=== PATIENT | male | born 1950 | race Caucasian/White ===

== ENCOUNTER 2019-09-03 15:11 | Inpatient (IN) ==
[2019-09-03 15:50] LABS: BASO# 0.03 X1000 (0.0-0.2); BASO% 0.2 % (0.0-0.8); EOS# 0.13 X1000 (0.0-0.7); HEMATOCRIT 51.8 % (42.0-52.0); HEMOGLOBIN 16.6 g/dL (14.0-18.0); IMM GRAN# 0.05 X1000 (0.0-0.04); IMM GRAN% 0.4 % (0.0-0.5); LYMPH# 1.22 X1000 (1.2-3.4); LYMPH% 9.5 % (20.5-51.1); MCH 28.1 PG (27-31); MCV 87.8 FL (81-99); MONO# 1.23 X1000 (0.11-0.59); MONO% 9.5 % (1.7-9.3); MPV 9.6 FL (7.4-10.4); NEUT# 10.23 X1000 (1.4-6.5); NEUT% 79.4 % (42.2-75.2); PLT 274 X1000 (130-400); RDW 16.4 % (11.5-14.5); WBC 12.89 X1000 (4.8-10.8)
[2019-09-03] MEDS ORDERED: PULMICORT INH ONE (15:50)
[2019-09-03] MEDS ORDERED: SOLU-MEDROL IV ONE (15:50)
[2019-09-03] MEDS ORDERED: ZOSYN 4.5 GM in NS 100 ML IV ONE (15:53)
[2019-09-03] MEDS ORDERED: VANCOMYCIN 1 GM/NS 1 GM/250 ML IVPB IV ONE (15:53)
--- NOTE | 2019-09-03 15:53 | PROVIDER DOCUMENTATION ---
This chart was entered by Yumiko Fernandez Scribe, acting as scribe for Malorie Chairez MD. HPI-General Adult - General Chief Complaint: Shortness of Breath Stated Complaint: difficulty breathing Time Seen by Provider: 09/03/19 15:32 Source: patient, family (Sister) Allergies/Adverse Reactions: Patient Allergies Allergy/AdvReac Type Severity Reaction Status Date / Time nitroglycerin Allergy Mild UNK Verified 09/03/19 16:15 - History of Present Illness -Gen Adult Nature of Presenting Problems: 69 y/o chronically ill male presents to the ED via EMS from [facility] with SOB. Sister states the patient has been complaining of left chest pain for two weeks and has recently complained of left abdominal pain. She stat es the patient is confused and unable to give a correct history. Sister states the patient has cancer which had "spread all over his body" by the time it was diagnosed. Location of Pain/Injury: reports: other (left chest and left abdomen) Onset/Duration: reports: gradual Timing: reports: still present Context/Activities at Onset: reports: light activity Associated Symptoms: reports: shortness of breath. denies: diarrhea, vomiting Review of Systems - Adult - REVIEW OF SYSTEMS - ADULT Constitutional: reports: fever. denies: weight gain, weight loss Eyes: reports: no symptoms reported Ears, Nose, Mouth & Throat: reports: no symptoms reported Cardiovascular: reports: chest pain. denies: irregular heart rate, syncope Respiratory: reports: shortness of breath. denies: cough, hemoptysis Gastrointestinal: reports: abdominal pain (left). denies: diarrhea, vomiting Genitourinary: reports: no symptoms reported Musculoskeletal: reports: no symptoms reported Integumentary: reports: no symptoms reported Neurological: reports: no symptoms reported Psychiatric: reports: no symptoms reported Endocrine: reports: no symptoms reported Hematologic/Lymphatic: reports: no symptoms reported Allergic/Immunologic: reports: no symptoms reported All Other Systems: Reviewed and Negative Past History - Adult - PAST MEDICAL HISTORY-ADULT Review of Records: reports: Old Records Reviewed, Nursing Assessment Review, Medications Reviewed - IMMUNIZATION STATUS Childhood Immunizations: See Nurse Assessment Flu Vaccine: See Nurse Assessment - SOCIAL HISTORY Smoking: non-smoker Substance Use: none/never Living Situation: care facility ([facility]) Physical Exam-General - PHYSICAL EXAM-ADULT Initial Vital Signs Reviewed: Yes - CONSTITUTIONAL General Appearance: moderate distress, other (chronically ill appearing) - HEAD, EARS, NOSE, MOUTH & THROAT HENMT: normocephalic/atraumatic - NECK Neck: full range of motion, supple - RESPIRATORY Respiratory: decreased breath sounds (mild on the right with little to no air movement on the left), other (mildly tachypneic, on non-rebreather) - CARDIOVASCULAR Cardiovascular: tachycardia - GASTROINTESTINAL (ABDOMEN) Abdominal Exam: negative: distended, guarding, rebound - SKIN Integumentary: negative: diaphoresis, pallor - NEUROLOGIC Neurologic: grossly normal Progress - PLAN OF CARE/RESULTS Progress/Plan/Lab Results: Vital Signs - 8 hr 09/03/19 15:13 Temperature 98.8 F Pulse Rate 105 H Respiratory Rate 30 H Blood Pressure 122/82 O2 Sat by Pulse Oximetry 90 L Patient with CXR shwoing large left pleural effusion. No PNA but unknown if there is underlying PNA underneath effusion. Will cover for sepsis. Patient is DNR and was transitioned to venti mask. Given brathing treatments and lasix. Cr 2.7, unknown baseline. Will need admission. Spoke to Dr Benjamin, rotational moulding operator for hospitalist who accepted patient for admission. Result Diagrams: 09/03/19 15:33 09/03/19 15:33 - XRAY 1 XRAY Study: Chest (CHEST-1 VIEW - 09/03/2019 INDICATION: SOB COMPARISON: None FINDINGS: There is cardiomegaly and significant pulmonary vascular congestion. There is a moderate to large left pleural effusion. There is hazy pulmonary edema in the lung bases. There is probably COPD. IMPRESSION: Congestive heart failure. Moderate to large left pleural effusion. COPD. Elec tronically signed by Alexander Hunter 09/03/2019 4:16 PM) Departure - Departure Date of Disposition Decision: 09/03/19 Time of Disposition Decision: 19:03 DIAGNOSIS: Congestive heart failure, Chronic kidney disease, Hyperkalemia, Elevated troponin Disposition: ADMITTED INPATIENT 09 Certified Medical Emergency: Emergent Condition: Critical - Critical Care Note This patient required my direct & personal management of CC.: Yes Total Time (mins): 35 Critical Care Statement: This patient required my direct personal management to treat or rule out processes, the absence of which, could potentiallly result in sudden, clinically significant life or limb threatening deterioration. Attestation - Physician/ STACY Attestation Patient care was provided by Advanced Practice Provider:: No The physician spent face to face time with patient:: Yes Advanced Practice Provider documentation review:: Supervising physician onsite and consulted in the evaluation and care of this patient. The physician did have a face to face encounter with the patient. This chart was documented by the indicated scribe, (Yumiko Fernandez, Scribe) and accurately reflects the services I performed and decisions made by me, Malorie Chairez MD, as attested by the provider's signature.
[2019-09-03 16:10] LABS: INR 1.66; PROTIME 19.9 Seconds (11.0-16.0)
[2019-09-03 16:12] LABS: PTT 45.2 Seconds (22.3-41.8)
[2019-09-03] MEDS: DUONEB (A & A) INH ONE ×2 (16:12→16:13)
--- NOTE | 2019-09-03 16:18 | Diag Imaging Result Doc PS360 ---
CHEST-1 VIEW - 09/03/2019 INDICATION: SOB COMPARISON: None FINDINGS: There is cardiomegaly and significant pulmonary vascular congestion. There is a moderate to large left pleural effusion. There is hazy pulmonary edema in the lung bases. There is probably COPD. IMPRESSION: Congestive heart failure. Moderate to large left pleural effusion. COPD. Electronically signed by Alexander Hunter 09/03/2019 4:16 PM
[2019-09-03 16:26] LABS: ALB/GLOB RATIO 1.1; ALBUMIN 3.5 g/dL (3.5-5.0); CALCIUM 9.8 mg/dL (8.8-10.2); CREATININE 2.7 mg/dL (0.7-1.2); MAGNESIUM 2.4 mg/dL (1.5-2.7); POTASSIUM 5.6 mmol/L (3.5-5.1); TOTAL BILIRUBIN 0.27 mg/dL (0.20-1.00); TOTAL PROTEIN 6.8 g/dL (6.3-8.3)
[2019-09-03] MEDS ORDERED: LASIX IV ONE (16:34)
[2019-09-03 18:55] LABS: URINE SOURCE CATH
[2019-09-03 18:59] LABS: BILIRUBIN URINE NEGATIVE (NEGATIVE); BLOOD URINE LARGE (NEGATIVE); COLOR YELLOW; GLUCOSE URINE NEGATIVE (NEGATIVE); KETONE URINE NEGATIVE (NEGATIVE); LEUKOCYTES URINE NEGATIVE (NEGATIVE); NITRITE URINE NEGATIVE (NEGATIVE); PH URINE 5.5; PROTEIN URINE TRACE mg/dL (NEGATIVE); SP GRAVITY URINE 1.013; TURBIDITY URINE CLEAR (CLEAR); UROBILINOGEN URINE NORMAL (NORMAL)
[2019-09-03 19:01] LABS: UR EPITHELIAL CELLS <10 /HPF (<10); URINE BACTERIA NEGATIVE /HPF; URINE RBC TNTC /HPF (<10); URINE WBC <10 /HPF (<10)
[2019-09-03 21:49] LABS: ALLEN TEST YES; BE -5.4 mmoll (-3.0-3.0); BLOOD TYPE ARTERIAL; HCO3-(ACT) 20.5 mmoll (20.0-26.0); METHB 0.8 % (0.0-1.5); MODALITY VENTIMASK; O2(CT) 20.5 mL/dL (15.0-23.0); O2HB 91.8 % (95.0-99.0); PCO2(98.6) 30 mmHg (35-45); PO2(98.6) 63 mmHg (60-100); SAMPLE BLOOD; SAO2 94.6 % (95.0-100.0); THB 15.9 g/dL (11.5-17.4); pH(98.6) 7.39 (7.35-7.45)
[2019-09-03] MEDS ORDERED: NORCO-7.5 PO ONE (21:52)
--- NOTE | 2019-09-03 22:25 | Diag Imaging Result Doc PS360 ---
CT THORAX W/O CONTRAST - 09/03/2019 INDICATION: Dyspnea,Hypoxia,Fever,cough COMPARISON: Chest radiograph from earlier FINDINGS: There is significant patient motion artifact. There is a left hilar mass measuring 4.8 cm. There is a large left pleural effusion. There is significant collapse of the left lung. There is severe COPD. There are some hazy interstitial infiltrates in the right lung base. No pleural effusion on the right. There are cholecystectomy clips. There are moderate degenerative changes of the spine. No acute or suspicious bony lesion. IMPRESSION: Left hilar mass. Rather large left pleural effusion. Severe COPD. Minimal interstitial infiltrates in the right lung base, nonspecific. This exam was performed using automated exposure control, adjustment of mA or kV according to patient size, and/or use of iterative reconstruction technique Electronically signed by Alexander Hunter 09/03/2019 10:22 PM
--- NOTE | 2019-09-03 23:21 | HISTORY AND PHYSICAL ---
ADDENDUM: Patient of Jenni Cuenca. The patient resides at [facility]. Has a history of left-sided lung cancer and elected to not proceed any further treatment. He has a DNR order in place. Came in because of shortness of breath and because of hypoxia over the last 2 to 3 days. His O2 saturation on 50% is 87%. Heart rate is 96, respiratory rate is 21, temperature is 98.8 degrees. He also complains of cough and left-sided chest pain. His lab work is notable for a creatinine of 2.7, potassium of 5.6, BUN of 59. His white count is 13,000, hemoglobin and hematocrit 16 and 51, platelets 274,000 with 79% neutrophils. Urinalysis shows no evidence of infection, but a lot of blood. His blood gas, 7.39, pCO2 of 30, PO2 of 63 and this is on 50% Venti mask. Chest film also shows congestive heart failure with moderate left pleural effusion. A CT thorax has been ordered to get a very clear picture of the true nature of the patient's dyspnea. I do suspect the primary driving force here since that he has a large left pleural effusion is likely the underlying malignancy in the left lung. However, it does not preclude the patient from having coexistent CHF although clinically when I examined him I did not find anything in his exam to suggest he has CHF. We will recommend ordering also an echo to assess his LV function. It is possible patient may have such a huge mass that it could be causing some compression on the heart to produce pulmonary edema noted on chest film. We will recommend also continuing Lasix at least to achieve some degree of comfort and DuoNebs scheduled. Also recommend starting the patient on Zosyn for now. Would also recommend a diagnostic/therapeutic thoracentesis in the morning. cc: Vivian Valles MD
[2019-09-03] MEDS: DUONEB (A & A) INH SCH (23:48)
[2019-09-04] MEDS: MAXIPIME 1 GM in NS 50 ML IV SCH ×3 (00:01→23:28)
[2019-09-04] MEDS: ZYVOX 600 MG/D5W 600 MG/300 ML IVPB IV SCH ×3 (01:01→23:28)
[2019-09-04] MEDS: DUONEB (A & A) INH SCH ×4 (03:25→21:09)
[2019-09-04 04:22] LABS: HEMATOCRIT 47.6 % (42.0-52.0); HEMOGLOBIN 15.2 g/dL (14.0-18.0); IMM GRAN# 0.03 X1000 (0.0-0.04); IMM GRAN% 0.4 % (0.0-0.5); LYMPH# 0.71 X1000 (1.2-3.4); LYMPH% 8.3 % (20.5-51.1); MCH 28.3 PG (27-31); MCHC 31.9 g/dL (33-37); MCV 88.6 FL (81-99); MONO# 0.28 X1000 (0.11-0.59); MONO% 3.3 % (1.7-9.3); MPV 9.5 FL (7.4-10.4); PLT 229 X1000 (130-400); RBC 5.37 XMIL (4.7-6.1); RDW 16.1 % (11.5-14.5); WBC 8.52 X1000 (4.8-10.8)
[2019-09-04] MEDS ORDERED: TYLENOL PO PRN (04:28)
[2019-09-04] MEDS ORDERED: TESSALON PO PRN (04:28)
[2019-09-04] MEDS ORDERED: ZOFRAN IV PRN (04:28)
[2019-09-04 04:53] LABS: ALB/GLOB RATIO 0.7; ALBUMIN 2.8 g/dL (3.5-5.0); CALCIUM 9.4 mg/dL (8.8-10.2); CREATININE 2.5 mg/dL (0.7-1.2); MAGNESIUM 2.4 mg/dL (1.5-2.7); POTASSIUM 4.9 mmol/L (3.5-5.1); TOTAL BILIRUBIN 0.24 mg/dL (0.20-1.00); TOTAL PROTEIN 6.9 g/dL (6.3-8.3)
[2019-09-04] MEDS: LASIX IV SCH ×2 (05:11→16:23)
[2019-09-04 05:25] LABS: ALLEN TEST YES; BE -4.1 mmoll (-3.0-3.0); BLOOD TYPE ARTERIAL; HCO3-(ACT) 21.6 mmoll (20.0-26.0); METHB 1.1 % (0.0-1.5); MODALITY NRB; O2HB 94.1 % (95.0-99.0); PCO2(98.6) 38 mmHg (35-45); PO2(98.6) 78 mmHg (60-100); SAMPLE BLOOD; SAO2 97.2 % (95.0-100.0); THB 15.9 g/dL (11.5-17.4); pH(98.6) 7.35 (7.35-7.45)
--- NOTE | 2019-09-04 05:28 | EKG Report ---
Test Performed on : 09/04/2019 04:11:43 AM Test Reason : Elevated Troponin Blood Pressure : / mmHG Vent. Rate : 083 BPM Atrial Rate : 083 BPM P-R Int : 142 ms QRS Dur : 088 ms QT Int : 404 ms P-R-T Axes : 048 033 018 degrees QTc Int : 474 ms Normal sinus rhythm. Normal ECG No previous ECGs available Unconfirmed Result
[2019-09-04] MEDS ORDERED: NS 500 ML IV ONE (08:32)
[2019-09-04] MEDS: SYSTANE EYE DROPS OPH SCH ×4 (09:29→20:43)
[2019-09-04] MEDS: PROSCAR PO SCH (09:29)
[2019-09-04] MEDS: THERA M PLUS PO SCH (09:29)
[2019-09-04] MEDS: FERROUS SULFATE PO SCH (09:29)
[2019-09-04] MEDS: NORCO-7.5 PO PRN ×2 (10:28→16:23)
--- NOTE | 2019-09-04 10:50 | HISTORY AND PHYSICAL ---
PRIMARY CARE PROVIDER: Dr. Jenni Cuenca at [facility] in [place]. DATE AND TIME: 09/03/2019 at 2145. CHIEF COMPLAINT: Shortness of breath. HISTORY OF PRESENT ILLNESS: Mr. Corrigan is a 69-year-old male who does have a pertinent past medical history of COPD, chronic hypoxic respiratory failure, congestive heart failure, atrial fibrillation, recurrent pneumonia, and a diagnosis of lung cancer approximately 1 year ago, for which the patient chose not to pursue treatment. The patient as well as his sister, Karley, who is at the bedside, report to me that for approximately a week now, he has had worsening shortness of breath. He has also had a wet, nonproductive cough. The patient states that he coughs, but it is like he cannot get his secretions up. He also reports that he has had fever, body aches, and chills. He has been reporting a left-sided chest pain as well, and he states this is worse with cough and deep breathing. His sister did state that they did do a chest x-ray yesterday and diagnosed him with pneumonia. She states since yesterday, his oxygen saturations have been low, in the 80s range, though at times had gotten down to as low as high 40s and 60s at times. According to the ER nurses note, it was documented that the patient did have a low oxygen saturation in the 60s at [facility]. They did call EMS. They gave DuoNeb treatment, and placed the patient on nonrebreather. His oxygen saturation did improve to 93%. They did report that the patient was awake and alert. Attempted to talk and did have garbled, hoarse speech. Upon my assessment, the patient was confused. He knew his name and his sister at bedside, though did not know where he was, but he could tell me the month was August. He was able to answer simple questions and follow commands. At the time I spoke with him, though he was hoarse, his speech was understandable. The patient does have difficulty hearing as well. The sister or the patient did not state that they had any previous knowledge of him having any type of left pleural effusion previously. The patient denies any headache or dizziness. He denies any abdominal pain, nausea, vomiting, or diarrhea. Though he did not report any painful urination, the patient as well as his sister both report that he has been complaining for quite some time that he feels like "things are closing up down there." When I questioned the patient about this further, it sounds to me that the patient has been having difficulty urinating. He does have a history of BPH. He does have a condom catheter on at this time and is having urine output. We did do a bladder scan. He is only holding 200 mL of urine in his bladder, but we are going to recheck this at scheduled intervals just to monitor him for possible high residuals. He denies any pain, numbness, tingling, or swelling in the extremities. His sister at bedside did not state that the nurses at the prison had informed her that he had been having bloody or black stool. Upon evaluation in the ER, it looks like they were planning to place the patient on BiPAP, though his oxygen saturation had improved with nonrebreather. They did place him ultimately on a Ventimask at 50%. With that, he is maintaining oxygen saturation in the low 90s. Arterial blood gases did show that he had a PO2 of 63, O2 saturation is 94, with a pH of 7.39, pCO2 of 30. He did have some mild leukocytosis noted with a white blood cell count of 12,890. Though his PT and INR, as well as PTT are all elevated, his INR is 1.6. The patient does take Xarelto for a history of atrial fibrillation. He also does have chronic kidney disease, though I am not sure what his baseline renal function is. At this time, his creatinine is 2.7. GFR is 24. He did have a slightly elevated potassium of 5.6. CK was 106, troponin was 0.158, and his proBNP was 26,735. EKG performed did show normal sinus rhythm at a rate of 83, with a QTc of 474. His chest x-ray did show congestive heart failure with a [id number] left pleural effusion. Given the patient's history, for further evaluation of this, we did perform a CT thorax, noncontrast, which did show a left hilar mass. He also had a rather large left pleural effusion, severe COPD, and infiltrates in the right lung base. On the overnight radiology report, they did note that there was some rightward shift of the mediastinum as well. This could be secondary to his pleural effusion, which could be contributing to his pulmonary edema and possible coexisting heart failure. He did receive Lasix 40 mg in the ER, as well as DuoNeb treatment, and blood cultures were obtained. We did also perform a flu, which was negative. He has been started on antibiotics of cefepime and Zyvox. He will be placed on PVC unit for close monitoring. REVIEW OF SYSTEMS: A 14-point review of systems was conducted with the patient, and all were negative, except the pertinent positives mentioned in the above HPI. PAST MEDICAL HISTORY: 1. COPD, on continuous oxygen of nasal cannula at 5 L. 2. Chronic hypoxic respiratory failure. 3. Pulmonary fibrosis. 4. History of lung cancer that was diagnosed 1 year ago. The patient has chosen not to pursue treatment for this. 5. History of atrial fibrillation, on chronic anticoagulation with Xarelto. 6. Hyperlipidemia. 7. History of peptic ulcer disease. 8. Chronic kidney disease. 9. Gastroesophageal reflux disease. 10. BPH. 11. Migraines. 12. Insomnia. 13. Obstructive sleep apnea. 14. Spondylosis. 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 16. Major depressive disorder. 17. Restless legs syndrome. 18. History of alcohol dependence in the past. PAST SURGICAL HISTORY: 1. Surgical repair of gastric ulcers. 2. Bilateral knee replacements. 3. Cataract surgery. SOCIAL HISTORY: The patient is a former smoker. He did smoke since he was a teenager, though quit smoking 2 years ago. He did have a history of daily alcohol abuse for a period of 5 years, and has not recently had any alcohol use. There is no known history of illicit drug use. According to the patient's record, he is . He does have 3 daughters, though his sister at bedside tells me unfortunately, they are not involved in his care and they have chosen this to be this way. She states that when they decided this, she did move him from a prison close to where they live, to [facility] in [place], and she has been overseeing his care there, though is not his Power of Distribution Operation Supervisor. According to her, his daughters, I guess specifically the oldest daughter, Maylin, is the next of kin. Though the patient was alert and oriented at the prison, did make himself a DO NOT RESUSCITATE, though at this time, he is slightly confused. We did call and speak with his daughter, Maylin, and did obtain his resuscitation status, which is still going to remain a DO NOT RESUSCITATE 1. His sister, Karley, reports that he is pretty much bedbound at this time at the prison. FAMILY HISTORY: Positive for his father having a history of colon cancer and a history of alcoholism. His mother had a history of pancreatic cancer and COPD. In siblings, there is a history of diabetes mellitus, kidney disease, heart disease, and lung disease. ALLERGIES: The patient has allergies to nitroglycerin. HOME MEDICATIONS: I would like to add that unfortunately, the patient's home medication list that was sent with him to the ER was not copied correctly. Half of it was cut off. We did call multiple times, trying to obtain a list for this. According to the prison, they were unable to get the fax to go through, and the nurse was uncooperative with confirming this list verbally over the phone. There is a list in the computer at this time, though this does need to be verified, though I will run through the medication and dosages, though we are awaiting confirmation of the dosage strength that is administered, and how many times a day. 1. DuoNeb treatments daily p.r.n. 2. Ceftriaxone 1 gram IM daily. 3. Ferrous sulfate 325 mg p.o. daily. 4. Proscar 5 mg p.o. daily. 5. Lasix 40 mg p.o. daily. 6. [place] 7.5 mg p.o. as directed p.r.n. 7. Levaquin 500 mg p.o. daily. 8. Lorazepam 1 mg p.o. daily p.r.n. 9. Methylprednisolone 40 mg IM every 12 hours. 10. Morphine liquid. The concentration is 20 mg/mL, though we do not know at this time how many mL he receives at a time. 11. Thera multivitamin 1 tablet p.o. daily. 12. Protonix 40 mg p.o. at bedtime. 13. Refresh ophthalmic eyedrops 1 drop in bilateral eyes 4 times a day as needed. 14. Potassium chloride, though I am unsure at this time what mEq dose he receives. 15. Pravastatin 20 mg p.o. at bedtime. 16. Xarelto 20 mg p.o. daily with supper. 17. Spiriva 1 puff inhaled daily. DIAGNOSTIC DATA/LABORATORY RESULTS: White blood cell count 12,890, hemoglobin 16.6, hematocrit 51.8, platelet count is 274,000. PT 19.9, INR 1.66, PTT is 45.2. Sodium 136, potassium 5.6, chloride 98, serum bicarb is 18, BUN 59, creatinine 2.7, GFR 24, glucose 104, calcium 9.8. Magnesium 2.4. Total bilirubin is 0.27, AST is 25, ALT 65, alkaline phosphatase is 184. CK 106, troponin 0.158. ProBNP is 26,735. Initial lactate was 1.3, with a repeat of 1. Urinalysis obtained via catheter showed trace protein, large blood. The nurses did report that they did try to place a Valencia catheter, though had difficulty with this. They even tried a [place] and were not able to obtain placement. This is likely where the large blood in the urine is coming from, though it was negative for nitrites, leukocytes, and bacteria. Arterial blood gases were obtained on FiO2 at 50% Ventimask, with pH of 7.39, pCO2 of 30, PO2 of 63, HC03 of 28.5, with an oxygen saturation of 94.6. EKG showed normal sinus rhythm at a rate of 83, QTc of 474. This is the patient's first visit at this facility. We do not have any other EKGs for comparison. Chest x-ray did show congestive heart failure with [id number] left pleural effusion. CT thorax without contrast did show a left hilar mass, a rather large left pleural effusion, which on the overnight Radiology report did note that he had rightward shift of the mediastinum. There were also interstitial infiltrates in the right lung base, and severe COPD. PHYSICAL EXAMINATION: VITAL SIGNS: Temperature 98.8 degrees, heart rate 94, respirations 26, blood pressure is 111/82, with a MAP of 95, oxygen saturations are anywhere from 89% to 92% on the bedside monitor, though it is not the most uniform pleth on the pulse oximeter. ABGs did note an oxygen saturation of 94%. GENERAL: The patient was resting in the ER stretcher. He was still tachypneic. He was reporting that he did feel a little short of breath, though he did state he felt better since he arrived, though he was in no acute distress. HEENT: Head is atraumatic, normocephalic. Pupils are equal, round, reactive to light, and were 3 mm bilaterally and brisk. Oral mucosa was slightly dry. Oropharynx was clear. NECK: Supple. Trachea midline. CARDIOVASCULAR: The patient has S1, S2 present. No murmurs, gallops, or rubs appreciated, with a regular rate and rhythm. PULMONARY: The patient has symmetrical chest expansion bilaterally. Lung sounds did note that he has wheezing and rhonchi throughout. He does have diminished lung sounds on the left. This is worse in the left lung base. He did have some crackles noted in the left lung base as well. He also had some crackles noted in the right lung base. ABDOMEN: Soft. It does not appear to be distended, though the patient has a slightly protuberant abdomen noted. He was complaining of also some left upper abdominal pain, though upon palpation, he was nontender. Bowel sounds are present in all 4 quadrants. GENITOURINARY: The patient does have a condom catheter in place at this time, though given his reports that he has been having some difficulty urinating maybe and stated that he felt like things were "closing up down there," we did remove the condom catheter. I did examine his urethral meatus. There do not appear to be any abnormalities that I could note. Delaney, the patient's nurse, was present at bedside with me during this portion of the patient's exam. After examination, the patient's foreskin was pulled back into place, and Delaney is going to place his condom catheter back on. He is having urine output into the condom catheter drainage bag. This is light diana color urine. He has approximately 900 mL of urine in the bag at this time. EXTREMITIES: No cyanosis. I noted that there may be some very slight trace edema present, though there is no pitting edema. Pulse, motor, and sensory were intact in all extremities. Radial and pedal pulses were 2+ bilaterally. INTEGUMENTARY: The patient's skin is pink, warm, and dry. NEUROLOGICAL: The patient is alert and oriented to person, time, and for the most part, situation. He was not oriented to place. His sister did have to help with some information related to history of present illness and past medical history, though for the most part, the patient was able to answer these questions. He did answer questions related to his symptoms and review of systems. He is able to move all extremities. There are no other focal neurological deficits noted. ASSESSMENT AND PLAN: 1. Acute on chronic hypoxic respiratory failure. This is likely secondary to the patient's underlying lung cancer, the large left pleural effusion, his pneumonia, as well as chronic obstructive pulmonary disease and a possible coexisting congestive heart failure. We have placed orders for the patient to undergo a diagnostic and therapeutic thoracentesis in the morning. We have placed him with supplemental oxygen as previously mentioned with the Ventimask. The patient's oxygen saturations have improved. His arterial blood gases did not show any overt acute abnormalities. We will continue with aggressive pulmonary toilet with incentive spirometry, scheduled DuoNeb treatments, and frequent encouragement of cough, turn, and deep breathing. We have obtained blood cultures as well as sputum culture. We did perform an influenza screen, which was negative. He has been placed with antibiotics of Zyvox and cefepime. We have also added on medication of Tessalon Perles for cough. We will repeat an ABG in the morning. We have placed a consult with Dr. Cooper with Pulmonology as well, and will await his evaluation and further recommendations for management. Will continue to monitor his respiratory status closely. 2. Large left pleural effusion. Will continue treatment as mentioned above in #1, with hopes that he may be able to undergo a thoracentesis in the morning for therapeutic and diagnostic evaluation. 3. Healthcare-associated pneumonia. Will continue with treatment as mentioned above for #1. 4. History of lung cancer diagnosed reportedly a year ago, for which the patient chose not to pursue treatment. 5. Chronic obstructive pulmonary disease. Will continue with treatment as mentioned above for #1. 6. Possible coexisting congestive heart failure. For this, we have placed the patient with Lasix 40 mg intravenously every 12 hours. We will obtain an echocardiogram, as well as a series of cardiac enzymes. We will do strict intake and output and daily weights. We will await the results of these diagnostic studies, and will continue to follow closely. This could be secondary to his worse pleural effusion. There was mention of some right mediastinal shift on the CT from the overnight radiologist. 7. History of atrial fibrillation, on chronic anticoagulation with Xarelto. The patient is in sinus rhythm at this time. He is in a controlled rate in the 80s. Given his renal function at this time, as well as he is going to undergo thoracentesis in the morning, we will place sequential compression devices at this time. We will start him with heparin 5000 units subcutaneously every 12 hours at this time given his renal function, though once this has improved, the patient could possibly be placed back on Xarelto if his renal function improves, though if his GFR is greater than 30, Eliquis is a possible option as well. We will await further evaluation of this through his hospital course, though we will not start on his heparin until tomorrow. He is hopefully going to undergo a thoracentesis today. Will hold this given his possible procedure. 8. Deep vein thrombosis prophylaxis will be provided with sequential compression devices at this time, though we will start him on heparin 5000 units subcutaneously every 12 hours tomorrow. The patient has been placed on PVC unit for close monitoring with continuous cardiac telemetry and pulse oximetry. Will do frequent vital sign. We will repeat a CBC, CMP, and magnesium in the morning. Will also perform a series of cardiac enzymes. We are going to get repeat ABGs, and we are awaiting possible thoracentesis and have ordered pleural fluid studies as well. Further orders and recommendations pending hospital course, diagnostic studies, and physician evaluation. Dictated by RUPESH Fournier for Vivian Valles MD cc: Vivian Valles MD MTDD
[2019-09-04] MEDS ORDERED: ANESTHESIA PB SET 88 IN 5742 ONE (11:11)
[2019-09-04 12:54] LABS: INR 1.17
--- NOTE | 2019-09-04 14:02 | CONSULTATION ---
DATE OF CONSULTATION: 09/04/2019 REQUESTING PROVIDER: RUPESH Fournier REASON FOR CONSULTATION: Acute respiratory failure, large left pleural effusion, lung cancer. HISTORY OF PRESENT ILLNESS: This is a 69-year-old male with a medical history of COPD with chronic hypoxic respiratory failure, pulmonary fibrosis, lung cancer, atrial fibrillation, hyperlipidemia, chronic kidney disease, gastroesophageal reflux disease, insomnia, obstructive sleep apnea, restless legs syndrome, and major depression disorder. He presented to the ER via EMS from [facility] yesterday afternoon with worsening shortness of breath, nonproductive cough, fever, body aches, and chills. He apparently has been diagnosed with and treated for pneumonia in the senior care day before hospital visit. CT thorax without contrast in the ER revealed left hilar mass measuring 4.8 cm, large left pleural effusion, significant collapse of the left lung, severe COPD, and some hazy interstitial infiltrates in the right lung base, nonspecific. Initial lab work showed mild leukocytosis, hypokalemia, elevated BUN, creatinine, troponin T, and proBNP at 26,745. The patient has been admitted to [facility] for further evaluation and management. The patient currently is still in the ER. He is lying in bed with no acute distress noted. He appears drowsy, but he will open his eyes when I talk to him. He does have difficulty hearing. Patient's sister at the bedside reported that the patient has lung cancer diagnosed 1 year ago with no treatment. The patient did complain of some left-sided chest pain which is worse with cough or deep breathing. He has loose stool recently, but no diarrhea noted. He also has been complaining of generalized abdominal pain recently, but no nausea or vomiting. PAST MEDICAL HISTORY: 1. Chronic obstructive pulmonary disease, chronic hypoxic respiratory failure on continuous oxygen, on continuous nasal cannula at 5 liters for over 2 years since the patient moved to [facility]. 2. Pulmonary fibrosis. 3. Lung cancer diagnosed 1 year ago in the [facility]. The patient has chosen not to pursuit treatment. 4. Atrial fibrillation on chronic and recurring coagulant with Xarelto. 5. Hyperlipidemia. 6. History of peptic ulcer disease. 7. Chronic kidney disease. 8. Gastroesophageal reflux disease. 9. Benign prostatic hyperplasia. 10. Migraines. 11. Insomnia. 12. Obstructive sleep apnea, not on any CPAP in the senior care. 13. Spondylosis. 14. Intervertebral degeneration in the thoracic region. 15. Major depressive disorder. 16. Restless legs syndrome. 17. History of heavy use, quit 2 years ago after the patient moved to the [facility]. 18. History of alcohol dependence. PAST SURGICAL HISTORY: 1. Gastric ulcer repair. 2. Bilateral knee replacements. 3. Cataract surgery. SOCIAL HISTORY: The patient has been living in the [facility] for 2 years. He started smoking at age of 15, smoked up to 3 packs per day and quit and 2 years ago after he moved to the [facility]. He used to drink alcohol daily for a period of 5 years. He has no history of illicit drug use. FAMILY HISTORY: Positive for lung cancer, colon cancer, alcoholism, pancreatic cancer, COPD, diabetes, kidney disease, heart disease. ALLERGIES: Nitroglycerin. REVIEW OF SYSTEMS: Difficult to be obtained. PHYSICAL EXAMINATION: Vital Signs: Temperature 97.8 degrees, blood pressure 118/79, pulse 79, respiratory rate 16, oxygen saturation 94% on nonrebreather with FiO2 of 100%. General: Chronically ill-appearing, lying in the stretcher with no acute distress noted. HEENT: Atraumatic, normocephalic. Trachea midline. Mucosa pink and slightly dry. Respiratory: Even and unlabored. Symmetrical excursion. Auscultation revealed significantly diminished breathing sounds on the left side of the lung and some mild early inspiratory crackles on the right lower lung zones. Cardiovascular: Regular rate and rhythm. Gastrointestinal: Soft, generalized tenderness, distended. Normoactive bowel sounds in all 4 quadrants. Extremities: No pedal edema. No cyanosis. No clubbing. Dorsalis pedis 2+ bilaterally. Neurologic: Alert and oriented x2 to person and time. Speech fluent. Able to follow commands. Difficulty hearing. LABORATORY DATA: White blood cell 8.52, hemoglobin 15.2, hematocrit 47.6, platelet 229,000. Sodium 139, potassium 4.9, chloride 103, carbon dioxide 18, BUN 59, creatinine 2.5, glucose 150. Troponin T of 0.091. ABG, pH 7.35, pCO2 of 48, PO2 of 78, HCO3 of 21.6, base excess -4.1, and oxyhemoglobin 94.1. IMAGING DATA: See [facility] for CT thorax without contrast on 09/03/2019. ASSESSMENT: This is a 69-year-old male with a medical history of chronic obstructive pulmonary disease with chronic hypoxic respiratory failure, pulmonary fibrosis, lung cancer without treatment, atrial fibrillation, hyperlipidemia, chronic kidney disease, gastroesophageal reflux disease, benign prostatic hyperplasia, insomnia, obstructive sleep apnea, restless legs syndrome, and major depressive disorder and a history of heavy tobacco use. He has been admitted to the [facility] since yesterday with acute on chronic hypoxic respiratory failure, large left pleural effusion, healthcare-associated pneumonia, and congestive heart failure. 1. Acute on chronic hypoxic respiratory failure, likely secondary to underlying lung cancer, large left pleural effusion, pneumonia, chronic obstructive pulmonary disease, and congestive heart failure. 2. Large left pleural effusion. 3. Healthcare-associated pneumonia. 4. Lung cancer diagnosed 1 year ago in the [facility] with no treatment. 5. Chronic obstructive pulmonary disease. 6. Congestive heart failure exacerbation. 7. Possible acute on chronic kidney disease. 8. DNR1. PLAN: 1. Continue supplemental oxygen. 2. Continue antibiotic including cefepime and linezolid. Continue breathing treatment every 6 hours. 3. Continue diuretics as indicated. 4. Follow up with ABG, CBC, BMP, sputum culture, blood culture, and chest x-ray. 5. Pending ultrasound-guided thoracentesis. 6. Further recommendations pending hospital course. Thank you for the courtesy of this consult. Dictated by RUPESH Mtz for Otto Russo MD cc: RUPESH Mtz MD [facility]
--- NOTE | 2019-09-04 14:51 | Diag Imaging Result Doc PS360 ---
EXAM: CHEST-2 VIEWS INDICATION: S/P LEFT U/S THORACENTESIS TECHNIQUE: 2 views COMPARISON: 09/03/2019 FINDINGS: There has been a significant decrease in size of the left pleural effusion status post left thoracentesis. At least a small amount of pleural fluid remains on the left. There is no evidence of pneumothorax status post thoracentesis. Pulmonary venous congestion and interstitial edema appears to have marginally improved. No new consolidation is identified. Cardiac silhouette is stable. IMPRESSION: 1.No evidence of pneumothorax status post left thoracentesis. 2.Marginal improvement of interstitial edema. Electronically signed by Kimo Mcnally 09/04/2019 2:49 PM
--- NOTE | 2019-09-04 14:55 | Diag Imaging Result Doc PS360 ---
EXAM: US THORACENTESIS W/IMAGE GUIDE INDICATION: Therapeutic/Diagnostic L Pleural Effusion TECHNIQUE: COMPARISON: None. FINDINGS: Risks, benefits, and alternatives were discussed with the patient and informed consent was obtained. Patient was prepped and draped in sterile fashion and local anesthesia was achieved with 1% lidocaine solution. Using ultrasound guidance, a large bore catheter was inserted into the left pleural space and 1500 mL of serosanguineous fluid was aspirated. There were no known complications. A postprocedural radiograph showed no pneumothorax. IMPRESSION: Technically successful ultrasound-guided left thoracentesis. Electronically signed by Kimo Mcnally 09/04/2019 2:53 PM
[2019-09-04] MEDS: PROTONIX PO SCH (20:43)
[2019-09-04] MEDS: PRAVACHOL PO SCH (20:43)
--- NOTE | 2019-09-04 21:53 | ECHO REPORT ---
ORDER DATE: 09/04/2019 INTERPRETING PHYSICIAN: Dr. Riggs CLINICAL INDICATIONS: CHF, pneumonia, lung cancer. M-MODE MEASUREMENTS: Left ventricle end diastole: 2.6 cm. Left ventricle end systole: 1.8 cm. Posterior wall: 1.1 cm. Interventricular septum: 1.1 cm. Left atrium: Not measured. Aortic diameter: 2.9 cm. SUMMARY OF 2-DIMENSIONAL IMAGIN. Left ventricular function appears to be normal. Ejection fraction is visually estimated at 60% to 65%. There is no wall motion abnormality. The right ventricle may be slightly prominent. 2. Aortic valve appears to be grossly normal. 3. Mitral valve also appears to be grossly normal. Color flow mapping appears to be unremarkable. 4. There is evidence of a good sized pleural fluid in front of the heart. 5. The Doppler pattern of the aortic valve is unremarkable. 6. The tricuspid valve shows unremarkable pattern. 7. The mitral valve shows reversal of the E and the A ratio. 8. Tissue Doppler of septal and lateral mitral annulus averages 7 cm. The inferior vena cava is not dilated. 9. I do not see evidence of pericardial effusion. 10.This study was very, very difficult. cc: Valdez Riggs MD
[2019-09-05] MEDS: DUONEB (A & A) INH SCH ×4 (03:00→22:24)
[2019-09-05 03:50] LABS: ALLEN TEST YES; BE -0.5 mmoll (-3.0-3.0); BLOOD TYPE ARTERIAL; HCO3-(ACT) 24.5 mmoll (20.0-26.0); METHB 1.1 % (0.0-1.5); O2(CT) 21.6 mL/dL (15.0-23.0); O2HB 95.7 % (95.0-99.0); PCO2(98.6) 42 mmHg (35-45); PO2(98.6) 93 mmHg (60-100); SAMPLE BLOOD; SAO2 98.5 % (95.0-100.0); pH(98.6) 7.38 (7.35-7.45)
[2019-09-05 03:51] LABS: MODALITY NRB
[2019-09-05] MEDS: LASIX IV SCH ×2 (04:25→16:14)
[2019-09-05] MEDS ORDERED: LOVENOX SUBQ SCH (06:00)
[2019-09-05] MEDS: NORCO-7.5 PO PRN ×2 (06:57→13:09)
[2019-09-05 08:13] LABS: SPECIMEN PLEURAL FLUID
[2019-09-05 08:14] LABS: BODY FLUID SOURCE PLEURAL FLUID
[2019-09-05 08:15] LABS: WBC BF 340 /cumm
[2019-09-05] MEDS: PROSCAR PO SCH (08:15)
[2019-09-05] MEDS: THERA M PLUS PO SCH (08:15)
[2019-09-05] MEDS: FERROUS SULFATE PO SCH (08:16)
[2019-09-05] MEDS: SYSTANE EYE DROPS OPH SCH ×4 (08:16→20:23)
[2019-09-05 08:19] LABS: MONOS 92 %; POLYS 8 %
[2019-09-05] MEDS ORDERED: HEPARIN SUBQ SCH (09:00)
[2019-09-05 09:56] LABS: TOTAL PROT BODY FLUID 4.2 g/dL
[2019-09-05 10:13] LABS: GLUCOSE BODY FLUID 152 mg/dL; LDH BODY FLUID 238 U/L
--- NOTE | 2019-09-05 10:28 | PROGRESS NOTE ---
DATE: 09/05/2019 SUBJECTIVE: The patient is still confused, very hard of hearing. OBJECTIVE: Vital Signs: Temperature 96.9 degrees, heart rate 74, respirations 19, blood pressure 116/68, O2 saturation 95% on nonrebreather mask. General: This is a chronically ill-appearing and mild tachypneic 69-year-old male, lying in bed, in no acute distress. Cardiovascular: S1, S2 heard. No murmurs, gallops, or rubs. Regular rate and rhythm. Respiratory: Wheezing or rhonchi is noted in both pulmonary mtz. Patient is not using any accessory muscles or having work of breathing. Abdomen: Soft, a little bit more distended in comparing with yesterday. No signs of peritoneal irritation. Extremities: No clubbing or cyanosis. Mild edema 1+ in both lower extremities. Neurological: Patient is awake. Moves 4 extremities spontaneously. Not oriented to place and time. LABORATORY DATA: Reviewed. ASSESSMENT AND PLAN: 1. Acute on chronic hypoxemic respiratory failure, multifactorial secondary to pneumonia and also left pleural effusion. Yesterday, were able to remove 1.5 L of pleural effusion. We are awaiting results of fluid studies. For pneumonia, we will continue with current antibiotic management, in this case Zyvox and cefepime. 2. Large left pleural effusion, as mentioned above. 3. Healthcare-associated pneumonia, as mentioned above. 4. Chronic obstructive pulmonary disease. We will continue with breathing treatments and antibiotics. 5. Atrial fibrillation. We will continue with Xarelto. Heart rate is under control. 6. Disposition. This patient's lung cancer that was diagnosed 1 year ago and he decided not to pursue any medical treatment. Now he came with left pleural effusion and has been drained yesterday. At this time, I am planning to keep this patient in the hospital. We will continue with IV antibiotics. I think will keep him for a couple days more and I think on Wednesday he can be sent to his rehab facility. We have consulted Palliative Care team. cc: Shashi Alba MD
[2019-09-05] MEDS: MAXIPIME 1 GM in NS 50 ML IV SCH (12:09)
[2019-09-05] MEDS: ZYVOX 600 MG/D5W 600 MG/300 ML IVPB IV SCH (12:09)
[2019-09-05] MEDS: CARAFATE LIQUID PO SCH ×2 (13:31→20:23)
--- NOTE | 2019-09-05 13:42 | GASTROENTEROLOGY CONSULTATION ---
DATE: 09/05/2019 REASON FOR CONSULTATION: Abdominal pain, diarrhea. HISTORY OF PRESENT ILLNESS: This is a 69-year-old male with a history of diagnosis of left lung cancer about a year ago. He has been residing at [facility] and was brought in to the hospital for shortness of breath, cough, fever and chills. Patient had been recently treated for pneumonia in the half-way. On evaluation, he had findings of left hilar mass, a large left pleural effusion, collapse of the left lung and severe COPD. He had a thoracentesis with 1-1/2 L of fluid removed. He has been seen by Pulmonology. Patient had decided not to proceed with treatment for his lung cancer. Patient has a sister at the bedside today. Currently patient was asleep. He did arouse but did not speak. He shook his head yes and no to some questions. Most of the information is obtained from the chart and the sister. She states he has complained of some generalized abdominal pain and he has had some loose stools reported recently. Patient's sister states he has seen a kick boxer in the past, Dr. Narvaez in [place] she states he had an EGD and colonoscopy probably at least 5 years ago. PAST MEDICAL HISTORY: COPD, history of left lung cancer diagnosed a year ago, patient decided not to pursue treatment, pulmonary fibrosis, history of atrial fibrillation, hyperlipidemia, history of peptic ulcer disease, chronic kidney disease, GERD, BPH, migraines, insomnia, sleep apnea, spondylosis, depression, history of alcohol dependence in the past. PAST SURGICAL HISTORY: Gastric ulcer surgery, bilateral knee replacement, cataract surgery. ALLERGIES: Nitroglycerin, unknown reaction. HOME MEDICATIONS: 1. Tylenol as needed. 2. Albuterol inhaler as needed. 3. Ceftriaxone 1 g daily. 4. Ferrous sulfate 325 mg daily. 5. Proscar 5 mg daily. 6. Lasix 40 mg daily. 7. Hydrocodone/acetaminophen 7.5/325 as directed. 8. Levaquin 500 mg daily. 9. Lorazepam 1 mg daily as needed. 10. Methylprednisone 40 mg IM every 12 hours. 11. Morphine 20 mg every 2 hours as needed. 12. Multivitamin daily. 13. Protonix 40 mg daily. 14. Eye drops as directed. 15. Potassium 10 mEq daily. 16. Potassium 20 mEq daily. 17. Pravastatin 20 mg every night. 18. Xarelto 20 mg daily. 19. Spiriva 1 daily. SOCIAL HISTORY: History of tobacco use. History of alcohol use in the past but none recently. He has been residing at [facility]. The patient is a DNR 1. His sister helps with his care. FAMILY HISTORY: Reported of colon cancer in his father. Mother had pancreatic cancer and COPD. Other family members with diabetes, kidney disease, heart disease and lung disease. REVIEW OF SYSTEMS: Per history of present illness. PHYSICAL EXAMINATION: Vital Signs: Temperature 98.1 degrees, pulse 81, respirations 19, blood pressure 121/70. General: The patient was resting at the time of my evaluation. He did arouse and he is very hard of hearing. Sister asked him several questions and he responded with shaking his head yes or no. HEENT: Normocephalic, atraumatic. Pupils equal, round, reactive to light. Cardiovascular: Regular rate and rhythm. Respiratory: With some rhonchi/wheezing noted. Abdomen: Soft. Patient reports some abdominal pain but no real signs of abdominal pain elicited with palpation. Extremities: Mild lower extremity edema noted. Neurologic: Patient aroused. He shook his head yes or no but did not speak at the time of my visit. He has oxygen by mask in place. LABORATORY DATA: Hematology: WBC 8.52, hemoglobin 15.2, hematocrit 27.6, MCV 88.6, platelets 229,000. Coagulation: Protime 15.0, INR 1.17. Chemistry: Sodium 139, potassium 4.9, chloride 103, CO2 18, BUN 59, creatinine 2.5, glucose 150. Total bilirubin 0.24, AST 17, ALT 48, alkaline phosphatase 144, albumin 2.8. Patient had a thoracentesis on 09/04/2019 that showed 1.5 L of fluid removed. ASSESSMENT AND PLAN: 1. Acute/chronic respiratory failure. Patient had 1.5 L of pleural fluid removed yesterday. Patient is on antibiotics. 2. Pneumonia, on antibiotics. 3. Chronic obstructive pulmonary disease. 4. History of atrial fibrillation, on Xarelto. 5. Recent loose stools, abdominal pain. Would recommend symptomatic treatment. Add Benifiber to bulk up the stool. Continue PPI. Would add Carafate. Would get stool studies because patient has been in the half-way and been on antibiotics. There is no documented diarrhea stool but documented 2 soft stools reported as brown in color. We will continue to follow and further plans will be made as needed. Would not recommend endoscopy procedure or invasive procedures at this time. Patient's sister also concurs with that. I have discussed this case with Dr. Avitia. Further plans will be made according to patient's progress. Thank you for this consultation. Dictated by RUPESH Golden for Hiren Avitia MD cc: RUPESH Valero MD [facility]
--- NOTE | 2019-09-05 14:45 | Diag Imaging Result Doc PS360 ---
EXAM: CT ABDOMEN/PELVIS W/O CONTRAST 09/05/2019 HISTORY: abdominal distension, history of untreated lung ca TECHNIQUE: This exam was performed using automated exposure control, adjustment of mA or kV according to patient size, and/or use of iterative reconstruction technique. COMMENT: There are no previous abdominal studies. Where possible comparison is made with the chest CT of 09/03/2019. There is some atelectasis or fibrosis present in the right lung base which has not changed significantly since the previous study. There is a pleural effusion with apparent nodular implants in the costophrenic sulcus. The visualized portion of the left lower lobe is completely airless. There are granulomata in the spleen. The spleen is enlarged measuring almost 14.5 cm in AP dimension. There is no evidence of nephrolithiasis or hydronephrosis. There is a fairly large cyst arising medially from the mid left kidney. The aorta is partially calcified and minimally distended below the renal arteries to 2.4 cm in AP dimension. There are major in the midline in the anterior abdominal wall. There is no evidence of bowel obstruction or significant adenopathy. There are multiple surgical clips in the roxanne hepatis. There are some granulomata in the liver. The appendix is normal in appearance. There is no evidence of free fluid in the pelvis. The urinary bladder is unremarkable. There are some old rib fractures present bilaterally. There are no acute bony abnormalities. IMPRESSION: Complete atelectasis of the left lower lobe with malignant pleural effusion. No evidence of acute disease in the abdomen and pelvis. Electronically signed by Fred Alejandro 09/05/2019 2:42 PM
[2019-09-05] MEDS: BENEFIBER PACKET PO SCH (16:53)
[2019-09-05] MEDS: PERCOCET-10 PO PRN ×2 (17:51→23:57)
[2019-09-05 19:33] LABS: BASO# 0.02 X1000 (0.0-0.2); BASO% 0.2 % (0.0-0.8); EOS# 0.18 X1000 (0.0-0.7); EOS% 1.6 % (0.0-10.0); HEMATOCRIT 50.2 % (42.0-52.0); HEMOGLOBIN 16.3 g/dL (14.0-18.0); IMM GRAN# 0.03 X1000 (0.0-0.04); IMM GRAN% 0.3 % (0.0-0.5); LYMPH# 1.38 X1000 (1.2-3.4); LYMPH% 12.1 % (20.5-51.1); MCHC 32.5 g/dL (33-37); MCV 89.3 FL (81-99); MONO# 1.22 X1000 (0.11-0.59); MONO% 10.7 % (1.7-9.3); MPV 9.3 FL (7.4-10.4); NEUT% 75.1 % (42.2-75.2); PLT 236 X1000 (130-400); RBC 5.62 XMIL (4.7-6.1); RDW 16.3 % (11.5-14.5); WBC 11.43 X1000 (4.8-10.8)
[2019-09-05 20:05] LABS: CALCIUM 9.7 mg/dL (8.8-10.2); CREATININE 1.8 mg/dL (0.7-1.2)
[2019-09-05] MEDS: PRAVACHOL PO SCH (20:23)
[2019-09-05] MEDS: PROTONIX PO SCH (20:23)
[2019-09-05] MEDS ORDERED: CALMOSEPTINE OINTMENT TOP PRN (21:46)
[2019-09-06] MEDS: ZYVOX 600 MG/D5W 600 MG/300 ML IVPB IV SCH ×3 (01:24→23:02)
[2019-09-06] MEDS: MAXIPIME 1 GM in NS 50 ML IV SCH ×3 (01:24→23:02)
[2019-09-06] MEDS: CARAFATE LIQUID PO SCH ×4 (02:43→20:45)
[2019-09-06] MEDS: DUONEB (A & A) INH SCH ×4 (03:59→21:29)
[2019-09-06 04:35] LABS: ALLEN TEST YES; BE -0.6 mmoll (-3.0-3.0); BLOOD TYPE ARTERIAL; HCO3-(ACT) 24.3 mmoll (20.0-26.0); METHB 0.9 % (0.0-1.5); O2(CT) 21.3 mL/dL (15.0-23.0); PCO2(98.6) 43 mmHg (35-45); PO2(98.6) 69 mmHg (60-100); SAMPLE BLOOD; THB 16.3 g/dL (11.5-17.4); pH(98.6) 7.37 (7.35-7.45)
[2019-09-06] MEDS: LASIX IV SCH ×2 (04:35→17:13)
[2019-09-06 04:38] LABS: MODALITY PRB
[2019-09-06] MEDS: PERCOCET-10 PO PRN ×4 (05:27→19:08)
[2019-09-06 05:45] LABS: BASO# 0.01 X1000 (0.0-0.2); BASO% 0.1 % (0.0-0.8); EOS# 0.28 X1000 (0.0-0.7); EOS% 2.7 % (0.0-10.0); HEMATOCRIT 52.1 % (42.0-52.0); HEMOGLOBIN 16.5 g/dL (14.0-18.0); IMM GRAN# 0.04 X1000 (0.0-0.04); IMM GRAN% 0.4 % (0.0-0.5); LYMPH# 1.68 X1000 (1.2-3.4); LYMPH% 16.5 % (20.5-51.1); MCH 28.3 PG (27-31); MCHC 31.7 g/dL (33-37); MCV 89.2 FL (81-99); MONO# 1.36 X1000 (0.11-0.59); MONO% 13.3 % (1.7-9.3); MPV 9.2 FL (7.4-10.4); NEUT# 6.83 X1000 (1.4-6.5); PLT 224 X1000 (130-400); RBC 5.84 XMIL (4.7-6.1); RDW 16.2 % (11.5-14.5)
[2019-09-06 06:15] LABS: CALCIUM 9.7 mg/dL (8.8-10.2); CREATININE 1.8 mg/dL (0.7-1.2); POTASSIUM 4.1 mmol/L (3.5-5.1)
[2019-09-06] MEDS: PROSCAR PO SCH (08:34)
[2019-09-06] MEDS: BENEFIBER PACKET PO SCH (08:34)
[2019-09-06] MEDS: FERROUS SULFATE PO SCH (08:34)
[2019-09-06] MEDS: THERA M PLUS PO SCH (08:34)
[2019-09-06] MEDS: SYSTANE EYE DROPS OPH SCH ×4 (08:45→20:45)
[2019-09-06] MEDS ORDERED: MUCOMYST 20% INH SCH (10:30)
[2019-09-06] MEDS: SOLU-MEDROL IV SCH ×3 (10:49→20:45)
--- NOTE | 2019-09-06 11:00 | PROGRESS NOTE ---
DATE: 09/06/2019 SUBJECTIVE: Patient continues to be confused and continues to require a lot of oxygen supplementation, in this case a non-rebreather mask. No other issues noted as per nursing staff overnight. OBJECTIVE: Vital Signs: Temperature 98.2 degrees, heart rate 77, respiratory 19, blood pressure 126/73, O2 saturation 95% on nonrebreather mask. General: This is a chronically ill-appearing, mildly tachypneic, 69-year-old male, lying in bed, in no acute distress. Cardiovascular: S1, S2 heard. No murmurs, gallops, or rubs. Regular rate and rhythm. Respiratory: Coarse breath sounds with wheezing all over both pulmonary mtz with the patient using some accessory muscles. Patient is having mild work of breathing as well. Abdomen: Soft, a little bit distended but nontender to palpation. Bowel sounds present. No organomegaly. Extremities: Mild edema 1+ in both lower extremities. Neurological: Patient is awake, moves 4 extremities spontaneously. Not oriented to place or time. Very hard of hearing. LABORATORY DATA: Reviewed. ASSESSMENT: 1. Acute on chronic hypoxemic respiratory failure, multifactorial secondary to pneumonia and also malignant left pleural effusion. 2. Large left pleural effusion. 3. Left lung cancer, untreated. 4. Healthcare-associated pneumonia. 5. Chronic obstructive pulmonary disease exacerbation. 6. Atrial fibrillation. PLAN: At this point, patient's clinical situation is the same. He is not improving. Palliative Care has been consulted. I am planning to take this patient with hospice when appropriate. I think this patient can go whenever the family is okay with that. I already talked with the family today and agreed with the plan. In the meantime, we will continue with antibiotics, breathing treatments. We will continue to monitor this patient closely. cc: Shashi Alba MD
[2019-09-06] MEDS: PROTONIX PO SCH (20:45)
[2019-09-06] MEDS: PRAVACHOL PO SCH (20:45)
[2019-09-07] MEDS: DUONEB (A & A) INH SCH ×2 (03:05→09:52)
[2019-09-07] MEDS: SOLU-MEDROL IV SCH ×2 (03:31→03:32)
[2019-09-07] MEDS: CARAFATE LIQUID PO SCH ×2 (03:54→09:02)
[2019-09-07] MEDS: LASIX IV SCH (05:24)
[2019-09-07] MEDS: PERCOCET-10 PO PRN ×3 (05:24→09:02)
[2019-09-07 06:13] LABS: HEMATOCRIT 47.8 % (42.0-52.0); HEMOGLOBIN 15.3 g/dL (14.0-18.0); IMM GRAN# 0.03 X1000 (0.0-0.04); IMM GRAN% 0.3 % (0.0-0.5); LYMPH# 0.56 X1000 (1.2-3.4); MCH 28.3 PG (27-31); MCV 88.4 FL (81-99); MONO# 0.53 X1000 (0.11-0.59); MONO% 4.7 % (1.7-9.3); MPV 9.6 FL (7.4-10.4); NEUT# 10.07 X1000 (1.4-6.5); PLT 257 X1000 (130-400); RBC 5.41 XMIL (4.7-6.1); RDW 15.4 % (11.5-14.5); WBC 11.19 X1000 (4.8-10.8)
[2019-09-07 06:47] LABS: CALCIUM 9.7 mg/dL (8.8-10.2); CREATININE 1.9 mg/dL (0.7-1.2); POTASSIUM 4.4 mmol/L (3.5-5.1)
--- NOTE | 2019-09-07 07:06 | Diag Imaging Result Doc PS360 ---
EXAM: CHEST-1 VIEW 09/07/2019 HISTORY: SOB TECHNIQUE: AP portable at 0521 COMMENT: There is near complete opacification of the left hemithorax with volume loss and shift of the mediastinum to the left. This was not the case on 08/25/2019 and may be a result of mucous plugging of the left mainstem bronchus. There is some increased interstitial opacity over the right base. IMPRESSION: 1. Complete atelectasis of the left lung. 2. Interstitial pulmonary edema. Electronically signed by Fred Alejandro 09/07/2019 7:04 AM
[2019-09-07 07:12] LABS: LYMPHS 2 % (21-51); MONO 6 % (1-9); SEGS 92 % (42-75)
[2019-09-07] MEDS: BENEFIBER PACKET PO SCH (09:02)
[2019-09-07] MEDS: SYSTANE EYE DROPS OPH SCH (09:03)
[2019-09-07] MEDS: THERA M PLUS PO SCH (09:04)
[2019-09-07] MEDS: PROSCAR PO SCH (09:04)
[2019-09-07] MEDS: FERROUS SULFATE PO SCH (09:04)
[2019-09-07] MEDS ORDERED: MORPHINE IV PRN (10:43)
[2019-09-07] MEDS ORDERED: ATIVAN IV PRN (10:44)
[2019-09-07] MEDS ORDERED: DUONEB (A & A) INH PRN (10:45)
[2019-09-07] MEDS ORDERED: TRANSDERM-SCOP TD SCH (10:45)
[2019-09-07 11:10] VITALS: BP 122/70
--- NOTE | 2019-09-07 11:24 | PROGRESS NOTE ---
DATE: 09/07/2019 SUBJECTIVE: The patient continues to be nonresponsive. Sister who is at bedside has talked with Louisa from Palliative Care and she agreed to do evaluation for inpatient hospice on this patient. OBJECTIVE: Vital Signs: Temperature 98.4 degrees, heart rate 181, respiratory rate 16, blood pressure 115/65, O2 saturation 92% on room air. General: This is a chronically ill-appearing, 69-year-old male, lying in bed, in no acute distress. Cardiovascular: S1, S2 heard. No murmurs, gallops, or rubs. Regular rate and rhythm. Respiratory: Coarse breath sounds noted as well as wheezing all over both pulmonary mtz. The patient is not using any accessory muscles or having work of breathing. Abdomen: Soft, nontender to palpation. Bowel sounds present. No organomegaly. Extremities: No clubbing, cyanosis, or edema. Peripheral pulses present in both legs. Neurological: The patient is awake. Very hard of hearing. Moves 4 extremities spontaneously. LABORATORY DATA: Reviewed. ASSESSMENT: 1. Acute on chronic hypoxemic respiratory failure, multifactorial secondary to pneumonia and also malignant left pleural effusion from lung cancer. 2. Large left pleural effusion. 3. Left lung cancer, untreated. 4. Healthcare-associated pneumonia. 5. Chronic obstructive pulmonary disease exacerbation. 6. Chronic atrial fibrillation. PLAN: At this point, the patient is not improving. Family decided to go home with hospice but this patient is pretty much noted stable so we are going to do a GIP evaluation. We are going to change his medication to comfort care measures only. We will monitor this patient closely. We will keep him comfortable. cc: Shashi Alba MD
--- NOTE | 2019-09-07 20:31 | DISCHARGE SUMMARY ---
ADMISSION DATE: 09/04/2019 DISCHARGE DATE: 09/07/2019 DISCHARGE DIAGNOSIS: 1. Acute on chronic hypoxemic respiratory failure multifactorial secondary to pneumonia and malignant left pleural effusion from untreated lung cancer. 2. Left lung cancer. 3. Healthcare associated pneumonia. 4. Chronic obstructive pulmonary disease exacerbation. 5. Chronic atrial fibrillation. CONSULTATIONS: Dr. Russo from Pulmonary. PROCEDURES: 1. Chest x-ray on admission showed congestive heart failure. Moderate to large left pleural effusion. 2. Chest CT showed left hilar mass, rather large left pleural effusion, and severe COPD with minimal interstitial infiltrates in the right lung base nonspecific. 3. Thoracentesis. Ultrasound was able to remove 1.5 L of pleural effusions. 4. CT of abdomen and pelvis showed complete atelectasis of the left lower lobe with malignant pleural effusion but no evidence of acute disease in the abdomen and pelvis. HOSPITAL COURSE: In brief, this is a 69-year-old male, resident of [facility] who has history of left sided lung cancer who decided not to proceed with any treatment. The patient was sent to the hospital because of shortness of breath. Because of his hypoxia we found out that this patient had large pleural effusion secondary to this lung disease. We were able to do paracentesis and removed 1.5 L of fluid. We will continue antibiotics for this lung infection but we had a long conversation with the family and then decided to do hospice and considering her clinical situation. DIP has been considered. At this point, hospice company will take over this patient and we will continue to follow. cc: Shashi Alba MD MTDRamu
== END 2019-09-07 13:47 | disposition hospice, inpatient (51) | DRG 871 ==
LOC: ED 15:11 → EDIPHOLD 09-04 01:16 → SUATTDRO 09-04 01:16 → 2N 09-04 08:13
PROVIDERS: ATTEND Internal Medicine

== ENCOUNTER 2019-09-07 13:48 | Inpatient (IN) ==
[2019-09-07] MEDS ORDERED: ZOFRAN IV PRN (14:18)
[2019-09-07] MEDS: MORPHINE IV PRN ×4 (14:38→22:49)
[2019-09-07] MEDS: TRANSDERM-SCOP TD SCH (14:44)
[2019-09-07] MEDS: DUONEB (A & A) INH PRN (15:42)
[2019-09-07] MEDS: ATIVAN IV PRN ×2 (19:24→22:51)
[2019-09-08] MEDS: MORPHINE IV PRN ×6 (02:47→10:58)
[2019-09-08] MEDS: ATIVAN IV PRN ×6 (02:47→14:50)
[2019-09-08] MEDS ORDERED: NARCAN IV PRN (14:11)
[2019-09-08] MEDS ORDERED: LR 1,000 ML ONE (15:55)
[2019-09-08] MEDS: MORPHINE PCA IV PRN ×2 (15:58→22:39)
[2019-09-08] MEDS: LR 1,000 ML IV SCH (15:58)
--- NOTE | 2019-09-08 18:06 | PROGRESS NOTE ---
DATE: 09/08/2019 SUBJECTIVE: Patient is very tachypneic. Not able to report any symptoms. As per family, he has been a little tachypneic but no other complaints. OBJECTIVE: Vital Signs: Temperature 97.7, heart rate 88, respiratory rate 20, blood pressure 114/72, O2 saturation 92% on 2 L. Cardiovascular: S1, S2 heard. No murmurs, gallops, or rubs. Respiratory: Coarse breath sounds noted in both pulmonary bases. Patient not using any accessory muscles. Neurological: Patient is obtunded. Does not follow commands. ASSESSMENT: 1. Acute respiratory failure. 2. Left lung cancer, treated. 3. Healthcare-associated pneumonia. 4. Chronic obstructive pulmonary disease exacerbation. 5. Congestive heart failure. PLAN: At this point, we will continue with medications recommended by the hospice team. We will continue to monitor. We will keep him comfortable. cc: Shashi Alba MD
[2019-09-09] MEDS: MORPHINE PCA IV PRN ×3 (05:43→21:40)
[2019-09-09] MEDS: DUONEB (A & A) INH PRN (11:18)
--- NOTE | 2019-09-09 15:06 | PROGRESS NOTE ---
DATE: 09/09/2019 SUBJECTIVE: Patient is less tachypneic. He looks definitely much more comfortable in comparing with yesterday. No complaints noted as per family who is at bedside. OBJECTIVE: Vital Signs: Temperature 100.3 degrees, heart rate 101, respiratory rate 12, blood pressure 99/72, O2 saturation 95% on 6 L nasal cannula. General Examination: This is a 69-year- old, chronically ill-appearing, lying in bed in mild respiratory distress. Cardiovascular: S1, S2 heard. No murmurs, gallops, or rubs. Respiratory: Coarse breath sounds noted in both pulmonary bases. Neurological: Patient is obtunded, does not follow commands. ASSESSMENT: 1. Acute respiratory failure. Left lung cancer, untreated. 2. Healthcare-associated pneumonia. 3. Chronic obstructive pulmonary disease exacerbation. 4. Congestive heart failure. PLAN: At this time, patient is on comfort care measures only. We will continue to monitor. cc: Shashi Alba MD
[2019-09-09] MEDS: LR 1,000 ML IV SCH (15:41)
[2019-09-09] MEDS: OFIRMEV 1000 MG/ISOTONIC SOLN 1,000 MG/100 ML BOTTLE IV PRN (23:47)
[2019-09-10] MEDS: MORPHINE PCA IV PRN ×3 (04:37→21:19)
[2019-09-10] MEDS: OFIRMEV 1000 MG/ISOTONIC SOLN 1,000 MG/100 ML BOTTLE IV PRN (04:49)
[2019-09-10] MEDS: DUONEB (A & A) INH PRN (10:50)
--- NOTE | 2019-09-10 11:12 | PROGRESS NOTE ---
DATE: 09/10/2019 SUBJECTIVE: Patient is less tachypneic. He is obtunded, nonverbal, looks comfortable according to family who is at bedside. OBJECTIVE: General: This is a 69-year-old chronically ill-appearing male, lying in bed, in mild respiratory distress. Cardiovascular: S1, S2 heard. No murmurs, gallops, or rubs. Regular rate and rhythm. Respiratory: Coarse breath sounds all over both pulmonary mtz. Neurological: The patient obtunded, does not follow commands. ASSESSMENT: 1. Acute respiratory failure secondary to left lung cancer, untreated. 2. Healthcare-associated pneumonia. 3. Chronic obstructive pulmonary disease exacerbation. 4. Congestive heart failure. PLAN: At this point, patient is on comfort care measures only. We will continue to monitor. cc: Shashi Alba MD
[2019-09-10] MEDS: LR 1,000 ML IV SCH (14:56)
[2019-09-10] MEDS: TRANSDERM-SCOP TD SCH (14:56)
[2019-09-11] MEDS: MORPHINE PCA IV PRN ×3 (05:02→20:22)
[2019-09-11] MEDS: DUONEB (A & A) INH PRN (09:32)
[2019-09-11] MEDS ORDERED: CALMOSEPTINE OINTMENT TOP PRN (12:28)
[2019-09-11] MEDS: LR 1,000 ML IV SCH ×2 (13:19→13:20)
[2019-09-12] MEDS: MORPHINE PCA IV PRN ×3 (04:34→20:41)
--- NOTE | 2019-09-12 10:41 | PROGRESS NOTE ---
DATE: 09/12/2019 SUBJECTIVE: Patient continues to be tachypneic, obtunded, and nonverbal, but looks comfortable according to the family who is at bedside. OBJECTIVE: Vital Signs: Temperature 100.4 degrees, heart rate 104, respiratory 17, blood pressure 92/48, and O2 saturation 93% on 5 L nasal cannula. General: This is a chronically ill appearing 69-year-old male lying in bed in mild respiratory distress. Cardiovascular: S1, S2 heard. No murmurs, gallops, or rubs. Respiratory: Coarse breath sounds all over both pulmonary mtz. Neurological: Patient obtunded. Does not follow commands. ASSESSMENT: 1. Acute respiratory failure secondary to left lung cancer untreated. 2. Healthcare-associated pneumonia. 3. Chronic obstructive pulmonary disease exacerbation. 4. Congestive heart failure. PLAN: At this point, the patient is on comfort care measures only. He is comfortable. We will continue with same management. cc: Shashi Alba MD
--- NOTE | 2019-09-12 15:45 | PROGRESS NOTE ---
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 Patient is looking comfortable. OBJECTIVE: Vital Signs: Temperature 99.6 degrees, heart rate 99, respiratory rate 13, blood pressure 85/61, O2 saturation 99% on 6 L nasal cannula. General: This is a chronically ill- looking, 69-year-old male, lying in bed, in no acute distress. Cardiovascular: S1, S2 heard. No murmurs, gallops, or rubs. Regular rate and rhythm. Respiratory: Coarse breath sounds noted all over both pulmonary mtz. Neurological: Patient obtunded. Does not follow commands. ASSESSMENT: 1. Acute respiratory failure secondary to left lung cancer, untreated. 2. Healthcare-associated pneumonia. 3. Chronic obstructive pulmonary disease exacerbation. 4. Congestive heart failure. PLAN: At this point, patient is on comfort care measures only. We will continue to monitor. Patient is definitely comfortable at this point. cc: Shashi Alba MD
[2019-09-12 20:15] VITALS: BP 79/37
[2019-09-12] MEDS: OFIRMEV 1000 MG/ISOTONIC SOLN 1,000 MG/100 ML BOTTLE IV PRN (21:20)
--- NOTE | 2019-09-13 12:40 | DISCHARGE SUMMARY ---
ADMISSION DATE: 09/07/2019 DISCHARGE DATE: 09/12/2019 DISCHARGE DIAGNOSES: The patient unfortunately from the following diagnoses: 1. Acute respiratory failure secondary to left lung cancer, untreated. 2. Health care associated pneumonia 3. Chronic obstructive pulmonary disease exacerbation. 4. Congestive heart failure. HOSPITAL COURSE: The patient has been admitted to the hospital for the above- mentioned conditions. The patient's prognosis was poor, so family decided to proceed with hospice. He was admitted to inpatient hospice. We maintained this patient comfortable with Ativan and morphine. He was doing okay, and unfortunately, he yesterday at 2238 p.m. cc: Shashi Alba MD MTDD
== END 2019-09-12 22:38 | disposition expired | DRG 180 ==
LOC: 2N 13:48 → 3N 21:21
PROVIDERS: ATTEND Internal Medicine